=== PATIENT | male | born 1980 | race Caucasian/White ===

== ENCOUNTER 2018-04-24 17:11 | Observation (INO) | payer MEDICAID ==
[~2018-04-24] VITALS: Ht 157.5 cm; Wt 76.0 kg
[~2018-04-24 17:11] MED LIST: LAS20 PO; MAGN400T27 PO; NADO40TA18 PO; PANT40TA4 PO; SPIR50TA PO
[2018-04-24] MEDS ORDERED: SOD CHLORIDE 0.9% 500 ML IV STA (22:24)
[2018-04-24] MEDS ORDERED: HYDROmorphONE 1 MG/ML SYG IV STA (22:24)
[2018-04-24] MEDS ORDERED: ONDANSETRON 4 MG INJ IV STA (22:24)
[2018-04-24] MEDS ORDERED: IOHEXOL 300MG/ML 150 ML BTL ONE (23:29)
[2018-04-24] MEDS ORDERED: SOD CHLORIDE 0.9% 100 ML ONE (23:29)
--- NOTE | 2018-04-25 00:25 | ERD ---
ER Documentation Chief Complaint Chief Complaint abdominal pain and sob since yesterday hx ascitis HPI This is a 37-year-old male with a history of ascites and comes in with complaints of abdominal distention and shortness of breath. Patient has a history of multiple paracentesis in the past. He says is gotten tense over the past few days. He denies any nausea or vomiting. He denies any fevers or chills. He denies any other current complaints. Denies any ekaterina abdominal pain ROS All systems reviewed and are negative except as per history of present illness. Medications Home Meds Active Scripts Pantoprazole* (Pantoprazole*) 40 Mg Tablet.dr, 40 MG PO DAILY@06 for 30 Days, #30 2 Refills ok for otc Omeprazole Prov:ALTAF BERKOWITZ MD 04/07/18 Magnesium Oxide* (Mag-Oxide*) 400 Mg Tablet, 400 MG PO BID for 5 Days, #10 TAB Prov:ALTAF BERKOWITZ MD 04/07/18 Furosemide (Lasix) 20 Mg Tab, 20 MG PO BID DIURETICS for 5 Days, #10 TAB Prov:ALTAF BERKOWITZ MD 04/07/18 Spironolactone* (Aldactone*) 50 Mg Tablet, 100 MG PO DAILY for 14 Days, #14 TAB take at bedtime Prov:ALTAF BERKOWITZ MD 04/07/18 Nadolol (Corgard) 40 Mg Tablet, 40 MG PO DAILY for 14 Days, #15 TAB Prov:ALTAF BERKOWITZ MD 04/07/18 Allergies Allergies: Coded Allergies: No Known Allergy (Unverified , 04/05/18) PMhx/Soc History of Surgery: No Anesthesia Reaction: No Hx Neurological Disorder: No Hx Respiratory Disorders: No Hx Cardiac Disorders: No Hx Psychiatric Problems: No Hx Miscellaneous Medical Probl: Yes (liver cirrhosis) Hx Alcohol Use: No (former) Hx Substance Use: No Hx Tobacco Use: No Smoking Status: Never smoker Physical Exam Vitals Vital Signs Date Temp Pulse Resp B/P (MAP) Pulse Ox O2 O2 Flow FiO2 Time Delivery Rate 04/24/18 69 15 118/66 99 Room Air 23:59 (83) 04/24/18 97.1 71 20 139/63 99 17:16 (88) Physical Exam Const: No acute distress Head: Atraumatic Eyes: Normal Conjunctiva ENT: Normal External Ears, Nose and Mouth. Neck: Full range of motion. No meningismus. Resp: Clear to auscultation bilaterally Cardio: Regular rate and rhythm, no murmurs Abd: Soft, non tender, non distended. Normal bowel sounds Skin: No petechiae or rashes Back: No midline or flank tenderness Ext: No cyanosis, or edema Neur: Awake and alert Psych: Normal Mood and Affect Result Diagram: 04/24/18223504/24/182235 Results 24 hrs Laboratory Tests Test 04/24/18 22:36 White Blood Count 3.6 10^3/ul Red Blood Count 3.58 10^6/ul Hemoglobin 12.3 g/dl Hematocrit 36.5 % Mean Corpuscular Volume 102.0 fl Mean Corpuscular Hemoglobin 34.4 pg Mean Corpuscular Hemoglobin Concent 33.7 g/dl Red Cell Distribution Width 15.7 % Platelet Count 51 10^3/UL Mean Platelet Volume 11.0 fl Immature Granulocytes % 0.600 % Neutrophils % % Lymphocytes % % Monocytes % % Eosinophils % % Basophils % % Nucleated Red Blood Cells % 0.0 /100WBC Immature Granulocytes # 0.020 10^3/ul Neutrophils # 10^3/ul Lymphocytes # 10^3/ul Monocytes # 10^3/ul Eosinophils # 10^3/ul Basophils # 10^3/ul Nucleated Red Blood Cells # 10^3/ul Urine Color CHARLIE Urine Clarity CLEAR Urine pH 5.0 Urine Specific [place] 1.027 Urine Ketones NEGATIVE mg/dL Urine Nitrite NEGATIVE mg/dL Urine Bilirubin NEGATIVE mg/dL Urine Urobilinogen 2+ mg/dL Urine Leukocyte Esterase NEGATIVE Ricci/ul Urine Microscopic RBC 5 /HPF Urine Microscopic WBC 5 /HPF Urine Mucus MODERATE /HPF Urine Hemoglobin 1+ mg/dL Urine Glucose NEGATIVE mg/dL Urine Total Protein NEGATIVE mg/dl Sodium Level 138 mmol/L Potassium Level 4.1 mmol/L Chloride Level 103 mmol/L Carbon Dioxide Level 24 mmol/L Anion Gap 11 Blood Urea Nitrogen 13 mg/dl Creatinine 0.63 mg/dl Est Glomerular Filtrat Rate mL/min > 60 mL/min Glucose Level 88 mg/dl Calcium Level 8.0 mg/dl Total Bilirubin 2.1 mg/dl Direct Bilirubin 0.00 mg/dl Indirect Bilirubin 2.1 mg/dl Aspartate Amino Transf (AST/SGOT) 45 IU/L Alanine Aminotransferase (ALT/SGPT) 46 IU/L Alkaline Phosphatase 177 IU/L Total Protein 6.9 g/dl Albumin 2.6 g/dl Globulin 4.30 g/dl Albumin/Globulin Ratio 0.60 Lipase 138 U/L Current Medications Medications Dose Sig/Brian Start Time Status Last (Trade) Ordered Route PRN Stop Time Admin Dose Reason Admin Sodium 500 ml @ Q1H STAT 04/24/18 DC 04/24/18 Chloride 500 mls/hr IV 22:24 22:51 04/24/18 23:23 1 mg ONCE STAT 04/24/18 DC 04/24/18 Hydromorphone IV 22:24 22:51 HCl 04/24/18 22:25 (Dilaudid) Ondansetron 4 mg ONCE STAT 04/24/18 DC 04/24/18 HCl (Zofran IV 22:24 22:51 Inj) 04/24/18 22:25 Sodium 100 ml @ ud STK-MED 04/24/18 DC 04/24/18 Chloride ONCE .ROUTE 23:29 23:55 04/24/18 23:30 Iohexol 150 ml STK-MED 04/24/18 DC 04/24/18 (Omnipaque ONCE .ROUTE 23:29 23:55 300mg/ ml) 04/24/18 23:30 Procedures/MDM Medical decision m[age]-year-old male with tense ascites and will likely need ultrasound-guided paracentesis. At this point the patient is clinically stable with no signs of infection or spontaneous bacterial peritonitis. He does however have tense ascites with a new large pleural effusion. Patient will obviously need to be tapped. He will be admitted to the medical surgical floor to the hospitalist service to Dr. kessler for further evaluation and management Departure Diagnosis: Primary Impression: Ascites Ascites type: other type Qualified Codes: R18.8 - Other ascites Condition: REGAN Valencia Apr 25, 2018 00:25
--- NOTE | 2018-04-25 01:13 | HP ---
Date/Time of Note Date/Time of Note DATE: 04/25/18 TIME: 01:09 Assessment/Plan VTE Prophylaxis Pharmacological prophylaxis: heparin Lines/Catheters IV Catheter Type (from Nrs): Saline Lock Assessment/Plan Hospital Course 37 yo male wiht h/o alcohlic cirrhosis complicated by ascites presents with nausea and lethargy. Found to have moderate ascites and large pleural effusion Cirrohsis with ascites: - Paracentesis in AM - Continue monica 100 and lasix 20 BID - No current signs of hepatic encephealopthy Pleural effusion: - Presumably hepatic hydrothorax. This is probably causing his exertional weakness. We will tap this as well Pancytopenia - Consistent with chronic liver disease h/o alcohol use disorder: - Now sober Discharge when stable Result Diagram: 04/24/18223504/24/182235 Results 24hrs Laboratory Tests Test 04/24/18 22:36 White Blood Count 3.6 #L Red Blood Count 3.58 L Hemoglobin 12.3 L Hematocrit 36.5 L Mean Corpuscular Volume 102.0 H Mean Corpuscular Hemoglobin 34.4 H Mean Corpuscular Hemoglobin Concent 33.7 Red Cell Distribution Width 15.7 H Platelet Count 51 #L Mean Platelet Volume 11.0 H Immature Granulocytes % 0.600 H Neutrophils % Segmented Neutrophils % (Manual) 69 Band Neutrophils % (Manual) 6 H Lymphocytes % Lymphocytes % (Manual) 10 L Monocytes % Monocytes % (Manual) 2 Eosinophils % Eosinophils % (Manual) 10 H Basophils % Metamyelocytes % (manual) 1 H Myelocytes % (Manual) 1 H Promyelocytes % (Manual) 1 H Nucleated Red Blood Cells % 0.0 Immature Granulocytes # 0.020 Neutrophils # Neutrophils # (Manual) 2.5 Band Neutrophils # 0.2 Lymphocytes (Manual) 0.3 L Lymphocytes # Monocytes # Monocytes # (Manual) 0.0 L Eosinophils # Basophils # Metamyelocytes # 0.0 Myelocytes # 0.0 Promyelocytes # 0.0 Nucleated Red Blood Cells # Platelet Estimate DECREASED Polychromasia 3+ Poikilocytosis 2+ Anisocytosis 3+ Macrocytosis 3+ Urine Color CHARLIE Urine Clarity CLEAR Urine pH 5.0 Urine Specific [place] 1.027 Urine Ketones NEGATIVE Urine Nitrite NEGATIVE Urine Bilirubin NEGATIVE Urine Urobilinogen 2+ H Urine Leukocyte Esterase NEGATIVE Urine Microscopic RBC 5 Urine Microscopic WBC 5 Urine Mucus MODERATE Urine Hemoglobin 1+ H Urine Glucose NEGATIVE Urine Total Protein NEGATIVE Sodium Level 138 Potassium Level 4.1 Chloride Level 103 Carbon Dioxide Level 24 Anion Gap 11 Blood Urea Nitrogen 13 Creatinine 0.63 Est Glomerular Filtrat Rate mL/min > 60 Glucose Level 88 Calcium Level 8.0 L Total Bilirubin 2.1 H Direct Bilirubin 0.00 Indirect Bilirubin 2.1 H Aspartate Amino Transf (AST/SGOT) 45 Alanine Aminotransferase (ALT/SGPT) 46 Alkaline Phosphatase 177 H Total Protein 6.9 Albumin 2.6 L Globulin 4.30 H Albumin/Globulin Ratio 0.60 Lipase 138 HPI/ROS Admit Date/Time Admit Date/Time Hx of Present Illness 37 yo male wtih h/o alcoholic cirrhosis presnets with nausea and lethargy Patient with known cirrhosis. On spironolactone 100 and lasix 20 BID to which he is adherent. Over past days has noticed belly getting bigger and more difficulty breathign. Has pain in LLQ. Today became nauseous and feels weak so came to ED. Here found to have moderate ascites and large pleural effusion PMH/Family/Social Past Medical History Cirrhosis Coded Allergies: No Known Allergy (Unverified , 04/05/18) Past Surgical History Past Surgical Hx: no surgical history Family History Significant Family History: no pertinent family hx Social History Alcohol Use: sober Smoking Status: Never smoker Drug Use: none Exam/Review of Systems Vital Signs Vitals Vital Signs Date Temp Pulse Resp B/P (MAP) Pulse Ox O2 O2 Flow FiO2 Time Delivery Rate 04/25/18 66 16 128/74 96 Room Air 01:01 (92) 04/24/18 97.1 17:16 Exam Exam Alert and oriented No asterixis or signs of HE RRR Breathing comfortably Abdomen mildly distended with ascities, soft, nontender No peripheral edema CAMILLA CASAS MD Apr 25, 2018 01:13
[2018-04-25] MEDS ORDERED: NACL 0.9% 3 ML SYG IV SCH (01:30)
[2018-04-25] MEDS ORDERED: HYDROCODONE/APAP (5/325) TAB PO PRN (01:30)
[2018-04-25 02:45] VITALS: BP 116/58; PULSE 59; RESP 18
[2018-04-25 03:08] VITALS: Ht 157.5 cm; Wt 76.0 kg
[2018-04-25] MEDS: FUROSEMIDE 20 MG TAB PO SCH ×2 (05:46→18:55)
[2018-04-25] MEDS: PANTOPRAZOLE (EC) 40 MG TAB PO SCH (05:46)
[2018-04-25 07:50] VITALS: BP 109/59; PULSE 90; RESP 16
[2018-04-25] MEDS: MAGNESIUM OXIDE 400 MG TAB PO SCH ×2 (08:59→22:09)
[2018-04-25] MEDS: SPIRONOLACTONE 50 MG TAB PO SCH (08:59)
[2018-04-25] MEDS: NADOLOL 40 MG TAB PO SCH (08:59)
[2018-04-25 12:20] VITALS: BP 100/56; PULSE 62; RESP 18
[2018-04-25] MEDS ORDERED: LIDOCAINE 1% (MPF) 5 ML VIAL ONE (12:51)
[2018-04-25 12:57] VITALS: BP 100/58; PULSE 60; RESP 16
[2018-04-25 14:30] VITALS: BP 95/55; PULSE 67; RESP 16
--- NOTE | 2018-04-25 16:19 | PN ---
Date/Time of Note Date/Time of Note DATE: 04/25/18 TIME: 16:19 Assessment/Plan VTE Prophylaxis Risk score (from Ns)>0 risk: 2 [place] [facility] [place] Pharmacological prophylaxis: NA/contraindicated Pharm contraindication: liver dx Lines/Catheters IV [facility] Type [facility] Saline Lock Urinary Cath still in place: No Assessment/Plan Hospital Course SUBJECTIVE: Denies any abdominal pain. Denies any dyspnea. OBJECTIVE: Physical Exam General: Adequately build 37 year-old male lying in bed in no apparent distress. HEENT: Normocephalic, atraumatic. Eyes: Anicteric sclerae, conjunctivae clear. ENT: Nasal septum midline, oral mucosa moist. Neck supple. Respiratory: Bilaterally diminished breath sounds. No use of accessory muscles o f respiration. No adventitious breath sounds. Cardiovascular: S1, S2 heard. Regular rate and rhythm. Abdomen: Ascites. Bowel sounds positive in all 4 quadrants. Genitourinary: Deferred. Extremities: No cyanosis, no clubbing, no edema. Peripheral pulses palpable. Neurologic: Cranial nerves II through XII grossly intact. The patient is awake, alert, and oriented. Skin: Normal skin turgor. No skin rashes. Labs & Vitals per chart ASSESSMENT & PLAN 37-year-old male with alcoholic liver cirrhosis who came to the emergency room with nausea and lethargy. The patient was found to have evidence of ascites and large right-sided pleural effusion. The patient was admitted to inpatient setting for further treatment and evaluation. 1. Decompensated alcoholic liver cirrhosis. -Continue Lasix and Aldactone. -Monitor mental status closely. 2. Right-sided pleural effusion. -Status post right-sided thoracentesis with drainage of 1 L of fluid on 04/25/2018. -Fluid analysis pending. -Etiology could be most probably secondary to underlying liver cirrhosis. 3. Pancytopenia. -Most probably secondary to underlying liver cirrhosis. -Monitor. 4. Coagulopathy. -Most probably secondary to underlying liver cirrhosis. -Monitor for any bleeding. 5. Fluids, electrolytes, and nutrition. -Regular diet. 6. DVT prophylaxis. -Bilateral SCDs. 7. Plan. -Continue diuresis. -Await clinical improvement. The patient was seen in collaboration with Dr. Mejia. Result Diagram: 2/19/19 2236 2/19/19 2236 Results 24hrs Laboratory Tests Test 04/24/18 22:36 04/25/18 08:25 04/25/18 12:30 White Blood Count 3.6 #L Red Blood Count 3.58 L Hemoglobin 12.3 L Hematocrit 36.5 L Mean Corpuscular Volume 102.0 H Mean Corpuscular Hemoglobin 34.4 H Mean Corpuscular 33.7 Hemoglobin Concent Red Cell Distribution Width 15.7 H Platelet Count 51 #L Mean Platelet Volume 11.0 H Immature Granulocytes % 0.600 H Neutrophils % Segmented Neutrophils 69 % (Manual) Band Neutrophils % (Manual) 6 H Lymphocytes % Lymphocytes % (Manual) 10 L Monocytes % Monocytes % (Manual) 2 Eosinophils % Eosinophils % (Manual) 10 H Basophils % Metamyelocytes % (manual) 1 H Myelocytes % (Manual) 1 H Promyelocytes % (Manual) 1 H Nucleated Red Blood Cells % 0.0 Immature Granulocytes # 0.020 Neutrophils # Neutrophils # (Manual) 2.5 Band Neutrophils # 0.2 Lymphocytes (Manual) 0.3 L Lymphocytes # Monocytes # Monocytes # (Manual) 0.0 L Eosinophils # Basophils # Metamyelocytes # 0.0 Myelocytes # 0.0 Promyelocytes # 0.0 Nucleated Red Blood Cells # Platelet Estimate DECREASED Polychromasia 3+ Poikilocytosis 2+ Anisocytosis 3+ Macrocytosis 3+ Urine Color CHARLIE Urine Clarity CLEAR Urine pH 5.0 Urine Specific [place] 1.027 Urine Ketones NEGATIVE Urine Nitrite NEGATIVE Urine Bilirubin NEGATIVE Urine Urobilinogen 2+ H Urine Leukocyte Esterase NEGATIVE Urine Microscopic RBC 5 Urine Microscopic WBC 5 Urine Mucus MODERATE Urine Hemoglobin 1+ H Urine Glucose NEGATIVE Urine Total Protein NEGATIVE Sodium Level 138 Potassium Level 4.1 Chloride Level 103 Carbon Dioxide Level 24 Anion Gap 11 Blood Urea Nitrogen 13 Creatinine 0.63 Est Glomerular Filtrat > 60 Rate mL/min Glucose Level 88 Calcium Level 8.0 L Total Bilirubin 2.1 H Direct Bilirubin 0.00 Indirect Bilirubin 2.1 H Aspartate Amino 45 Transf (AST/SGOT) Alanine 46 Aminotransferase (ALT/SGPT) Alkaline Phosphatase 177 H Total Protein 6.9 Albumin 2.6 L Globulin 4.30 H Albumin/Globulin Ratio 0.60 Lipase 138 Prothrombin Time 20.1 H Prothrombin Time Ratio 1.6 INR International 1.70 Normalized Ratio Activated 36.0 H Partial Thromboplast Time Body Fluid Type THORACENTESIS FLUID Body Fluid Volume 1000.0 Body Fluid Color YELLOW Body Fluid Appearance HAZY Body Fluid WBC 242 Body Fluid RBC (Auto) 4000 Body Fluid Polynuclear 8.3 WBCs (%) Body Fluid Mononuclear 91.7 Cells % Auto Body Fluid Glucose 97 Body Fluid Total Protein < 2.0 Body Fluid 256 Lactate Dehydrogenase Exam/Review of Systems Exam Vitals Vital Signs Date Temp Pulse Resp B/P (MAP) Pulse Ox O2 O2 Flow FiO2 Time Delivery Rate 04/25/18 98.2 67 16 95/55 (68) 94 Room Air 14:30 Intake and Output 04/24/18 04/24/18 04/25/18 1515:00 23:00 07:00 IntakeIntake Total 120 ml BalanceBalance 120 ml Results Results 24hrs Laboratory Tests Test 04/24/18 22:36 04/25/18 08:25 04/25/18 12:30 White Blood Count 3.6 #L Red Blood Count 3.58 L Hemoglobin 12.3 L Hematocrit 36.5 L Mean Corpuscular Volume 102.0 H Mean Corpuscular Hemoglobin 34.4 H Mean Corpuscular 33.7 Hemoglobin Concent Red Cell Distribution Width 15.7 H Platelet Count 51 #L Mean Platelet Volume 11.0 H Immature Granulocytes % 0.600 H Neutrophils % Segmented Neutrophils 69 % (Manual) Band Neutrophils % (Manual) 6 H Lymphocytes % Lymphocytes % (Manual) 10 L Monocytes % Monocytes % (Manual) 2 Eosinophils % Eosinophils % (Manual) 10 H Basophils % Metamyelocytes % (manual) 1 H Myelocytes % (Manual) 1 H Promyelocytes % (Manual) 1 H Nucleated Red Blood Cells % 0.0 Immature Granulocytes # 0.020 Neutrophils # Neutrophils # (Manual) 2.5 Band Neutrophils # 0.2 Lymphocytes (Manual) 0.3 L Lymphocytes # Monocytes # Monocytes # (Manual) 0.0 L Eosinophils # Basophils # Metamyelocytes # 0.0 Myelocytes # 0.0 Promyelocytes # 0.0 Nucleated Red Blood Cells # Platelet Estimate DECREASED Polychromasia 3+ Poikilocytosis 2+ Anisocytosis 3+ Macrocytosis 3+ Urine Color CHARLIE Urine Clarity CLEAR Urine pH 5.0 Urine Specific [place] 1.027 Urine Ketones NEGATIVE Urine Nitrite NEGATIVE Urine Bilirubin NEGATIVE Urine Urobilinogen 2+ H Urine Leukocyte Esterase NEGATIVE Urine Microscopic RBC 5 Urine Microscopic WBC 5 Urine Mucus MODERATE Urine Hemoglobin 1+ H Urine Glucose NEGATIVE Urine Total Protein NEGATIVE Sodium Level 138 Potassium Level 4.1 Chloride Level 103 Carbon Dioxide Level 24 Anion Gap 11 Blood Urea Nitrogen 13 Creatinine 0.63 Est Glomerular Filtrat > 60 Rate mL/min Glucose Level 88 Calcium Level 8.0 L Total Bilirubin 2.1 H Direct Bilirubin 0.00 Indirect Bilirubin 2.1 H Aspartate Amino 45 Transf (AST/SGOT) Alanine 46 Aminotransferase (ALT/SGPT) Alkaline Phosphatase 177 H Total Protein 6.9 Albumin 2.6 L Globulin 4.30 H Albumin/Globulin Ratio 0.60 Lipase 138 Prothrombin Time 20.1 H Prothrombin Time Ratio 1.6 INR International 1.70 Normalized Ratio Activated 36.0 H Partial Thromboplast Time Body Fluid Type THORACENTESIS FLUID Body Fluid Volume 1000.0 Body Fluid Color YELLOW Body Fluid Appearance HAZY Body Fluid WBC 242 Body Fluid RBC (Auto) 4000 Body Fluid Polynuclear 8.3 WBCs (%) Body Fluid Mononuclear 91.7 Cells % Auto Body Fluid Glucose 97 Body Fluid Total Protein < 2.0 Body Fluid 256 Lactate Dehydrogenase Medications Medication Current Medications Furosemide (Lasix) 20 mg BID DIURETICS PO Last administered on 04/25/18at 05:46; Admin Dose 20 MG; Start 04/25/18 at 06:00 Magnesium Oxide (Mag-Ox 400) 400 mg BID PO Last administered on 04/25/18 08:59; Admin Dose 400 MG; Start 04/25/18 at 09:00 Nadolol (Corgard) 40 mg DAILY PO Last administered on 04/25/18 08:59; Admin Dose 40 MG; Start 04/25/18 at 09:00 Pantoprazole (Protonix Tab) 40 mg DAILY@06 PO Last administered on 04/25/18at 05:46; Admin Dose 40 MG; Start 04/25/18 at 06:00 Spironolactone (Aldactone) 100 mg DAILY PO Last administered on 04/25/18 08:59; Admin Dose 100 MG; Start 04/25/18 at 09:00 IV Flush (NS 3 ml) 3 ml PER PROTOCOL IV ; Start 04/25/18 at 01:30 Acetaminophen/ Hydrocodone Bitart ([place] (5/325)) 1 tab Q6H PRN PO .MOD PAIN 4- 6; Start 04/25/18 at 01:30 HUNTER DANG NP Apr 25, 2018 16:19
[2018-04-25 20:00] VITALS: BP 98/53; PULSE 71; RESP 18
[2018-04-26 02:00] VITALS: BP 98/57; PULSE 59; RESP 18
[2018-04-26] MEDS: FUROSEMIDE 20 MG TAB PO SCH (05:14)
[2018-04-26] MEDS: PANTOPRAZOLE (EC) 40 MG TAB PO SCH (05:14)
[2018-04-26 07:25] VITALS: BP 95/52; PULSE 57; RESP 16
[2018-04-26] MEDS: SPIRONOLACTONE 50 MG TAB PO SCH (08:16)
[2018-04-26] MEDS: NADOLOL 40 MG TAB PO SCH (08:16)
[2018-04-26] MEDS: MAGNESIUM OXIDE 400 MG TAB PO SCH (08:16)
--- NOTE | 2018-04-26 10:23 | PDOCDIS ---
Discharge Instructions CONDITION [id number] Patient Condition: [id number] Stable HOME CARE INSTRUCTIONS: [id number] Diet Instructions: [id number] Reduced Sodium FOLLOW UP/APPOINTMENTS Follow-up Plan Shree Barron MD Specialty: Internal Medicine Office Address: [address] [place], [place] [id number] Office OTHER ORDERS: Other Orders: 1. Resume home medications. 2. Resume activities as tolerated. 3. Follow a low sodium diet. 4. Follow-up with your primary care physician in 2 weeks. If you do not have a primary care physician, please call Dr. Shree Barron's office. 5. Please go to the nearest emergency room if you have abdominal pain, fevers, or any other unusual signs/symptoms. HUNTER DANG NP Apr 26, 2018 10:23
--- NOTE | 2018-04-26 10:41 | DS ---
Date/Time of Note Date/Time of Note DATE: 04/26/18 TIME: 10:39 Discharge Summary Admission/Discharge Info Admit Date/Time Apr 25, 2018 at 00:23 Discharge Date/Time Discharge Diagnosis 1. Decompensated alcoholic liver cirrhosis. 2. Right-sided pleural effusion. Status post right-sided thoracentesis with drainage of 1 L of fluid on 04/25/2018. 3. Pancytopenia. 4. Coagulopathy. Patient Condition: Stable Procedures US Guided Right Thoracentesis FINDINGS: Initial ultrasound demonstrates fluid in the right pleural space. Approximately 1.0 liters of serous fluid was aspirated and sent to the laboratory. Specimens: Pleural fluid. Blood loss: 1 ml. Complications: None. Professional Bass Fisher: None. Anesthesia: Local. Graft/Implant: None. IMPRESSION: 1. Satisfactory ultrasound-guided right thoracentesis. CT Abdomen & Pelvis IMPRESSION: 1. Chronic end stage liver disease with ascites and a large right pleural effusion. 2. No evidence of bowel obstruction, bowel perforation, urinary tract stone, or urinary tract obstruction. . Hx of Present Illness This is a 37-year-old male with alcoholic liver cirrhosis who came to the emergency room with nausea and lethargy. The patient was found to have evidence of ascites and large right-sided pleural effusion. The patient was admitted to inpatient setting for further treatment and evaluation. Hospital Course The patient was admitted to inpatient setting. A thoracentesis and paracentesis were ordered. The patient underwent a right-sided thoracentesis with drainage of 1 L of fluid. The fluid cultures are negative at this time. The patient's right-sided pleural effusion could be most probably secondary to underlying liver cirrhosis. The patient was evaluated for paracentesis. However, the patient only had trace underlying ascites. The patient has alcoholic liver cirrhosis and the patient was maintained on diuretics and beta-blockers. The patient's ammonia level was almost normal and the patient did not have any evidence of any encephalopathy. Therefore, the patient was not maintained on any lactulose. The patient had underlying pancytopenia secondary to liver cirrhosis. The patient's blood components were monitored closely. The patient had a stable hospital course. The patient is able to be discharged home. The patient does not have any indication for prophylactic antibiotics for SBP since the patient did not have any abdominal pain or tenderness. The patient did not have any paracentesis done. Discharge Instructions 1. Resume home medications. 2. Resume activities as tolerated. 3. Follow a low sodium diet. 4. Follow-up with your primary care physician in 2 weeks. If you do not have a primary care physician, please call Dr. Shree Barron's office. 5. Please go to the nearest emergency room if you have abdominal pain, fevers, or any other unusual signs/symptoms. The patient verbalized understanding of his discharge instructions. The patient was seen in collaboration with Dr. Mejia. Home Meds Active Scripts Pantoprazole* (Pantoprazole*) 40 Mg Tablet., 40 MG PO DAILY@06 for 30 Days, #30 2 Refills ok for otc Omeprazole Prov:ALTAF BERKOWITZ MD 04/07/18 Magnesium Oxide* (Mag-Oxide*) 400 Mg Tablet, 400 MG PO BID for 5 Days, #10 TAB Prov:ALTAF BERKOWITZ MD 04/07/18 Furosemide (Lasix) 20 Mg Tab, 20 MG PO BID DIURETICS for 5 Days, #10 TAB Prov:ALTAF BERKOWITZ MD 04/07/18 Spironolactone* (Aldactone*) 50 Mg Tablet, 100 MG PO DAILY for 14 Days, #14 TAB take at bedtime Prov:ALTAF BERKOWITZ MD 04/07/18 Nadolol (Corgard) 40 Mg Tablet, 40 MG PO DAILY for 14 Days, #15 TAB Prov:ALTAF BERKOWITZ MD 04/07/18 Follow-up Plan Shree Barron MD Specialty: Internal Medicine Office Address: [address] [place], [place] [id number] Office Primary Care Provider [facility] Time spent on discharge: > 30 minutes Pending Labs Laboratory Tests Test 04/25/18 12:30 04/26/18 05:45 Body Fluid Type THORACENTESIS FLUID Body Fluid Volume 1000.0 ml Body Fluid Color YELLOW Body Fluid Appearance HAZY Body Fluid WBC 242 /cmm Body Fluid RBC (Auto) 4000 /uL Body Fluid Polynuclear WBCs (%) 8.3 % Body Fluid Mononuclear Cells % 91.7 % Auto Body Fluid Glucose 97 mg/dl Body Fluid Total Protein < 2.0 g/dl Body Fluid Lactate Dehydrogenase 256 U/L White Blood Count 2.7 10^3/ul (4.8-10.8) Red Blood Count 3.35 10^6/ul (4.70-6.10) Hemoglobin 11.5 g/dl (14.0-18.0) Hematocrit 34.8 % (42.0-52.0) Mean Corpuscular Volume 103.9 fl (82.0-101.0) Mean Corpuscular Hemoglobin 34.3 pg (29.0-33.0) Mean Corpuscular 33.0 g/dl (32.0-37.0) Hemoglobin Concent Red Cell Distribution Width 15.1 % (11.5-14.5) Platelet Count 45 10^3/UL (140-415) Mean Platelet Volume 11.4 fl (7.4-10.4) Immature Granulocytes % 0.400 % (0.001-0.429) Neutrophils % 56.2 % (39.0-77.0) Lymphocytes % 25.0 % (15.0-51.0) Monocytes % 10.7 % (0.0-11.0) Eosinophils % 7.0 % (0.0-7.0) Basophils % 0.7 % (0.0-2.0) Nucleated Red Blood Cells % 0.0 /100WBC (0.0-0.0) Immature Granulocytes # 0.010 10^3/ul (0.0-0.031) Neutrophils # 1.5 10^3/ul (1.6-7.5) Lymphocytes # 0.7 10^3/ul (0.8-2.9) Monocytes # 0.3 10^3/ul (0.3-0.9) Eosinophils # 0.2 10^3/ul (0.0-0.5) Basophils # 0.0 10^3/ul (0.0-0.1) Nucleated Red Blood Cells # 0.0 10^3/ul (0.0-0.0) Prothrombin Time 21.1 Sec (11.9-14.9) Prothrombin Time Ratio 1.6 INR International 1.81 Normalized Ratio Activated Partial Thromboplast 37.9 Sec (23.0-35.0) Time Sodium Level 136 mmol/L (135-144) Potassium Level 4.8 mmol/L (3.5-5.1) Chloride Level 106 mmol/L (97-110) Carbon Dioxide Level 29 mmol/L (21-31) Anion Gap 1 (5-13) Blood Urea Nitrogen 13 mg/dl (7-20) Creatinine 0.64 mg/dl (0.61-1.24) Est Glomerular Filtrat > 60 mL/min (>60) Rate mL/min Glucose Level 90 mg/dl (70-220) Hemoglobin A1c 4.3 % (0-5.9) Calcium Level 7.8 mg/dl (8.4-10.2) Phosphorus Level 3.9 mg/dl (2.5-4.9) Magnesium Level 1.6 mg/dl (1.7-2.5) Total Bilirubin 1.7 mg/dl (0.2-1.3) Direct Bilirubin 0.00 mg/dl (0.00-0.20) Indirect Bilirubin 1.7 mg/dl (0-1.1) Aspartate Amino 45 IU/L (15-46) Transf (AST/SGOT) Alanine 40 IU/L (13-69) Aminotransferase (ALT/SGPT) Alkaline Phosphatase 146 IU/L (42-121) Ammonia 33 umol/l (9-30) Total Protein 5.8 g/dl (6.1-8.1) Albumin 2.1 g/dl (3.3-4.9) Globulin 3.70 g/dl (1.3-3.2) Albumin/Globulin Ratio 0.56 Microbiology Date/Time Source Procedure Growth Status 04/25/18 12:30 Thoracentesis Fluid Gram Stain Pending Resulted 04/25/18 12:30 Thoracentesis Fluid Body Fluid Culture - Preliminary Resulted HUNTER DANG NP Apr 26, 2018 10:41
== END 2018-04-26 12:25 | disposition home or self-care (01) ==
LOC: E/R 17:11 → PP2 04-25 00:23
PROVIDERS: ADMIT Internal Medicine; ATTEND Internal Medicine
DX: K70.31 Alcoholic cirrhosis of liver with ascites (principal); J90 Pleural effusion, not elsewhere classified; D61.818 Other pancytopenia; D68.9 Coagulation defect, unspecified
CPT/HCPCS: 32555; 36415; 71045; 74177; 76705; 76942; 80053; 81001; 82140; 82945; 83036; 83615; 83690; 83735; 84100; 84157; 85025; 85610; 85730; 87070; 87081; 87102; 87116; 89051; 96374; 96375; 97161; J1170; J2405; J7040; Q9967; Z7500; Z7502; Z7610; G0378